=== PATIENT | female | born 1980 | race African-American/Black ===

== ENCOUNTER 2017-09-17 19:59 | Inpatient (IN) | payer MEDICAID ==
[~2017-09-17] VITALS: Ht 167.6 cm; Wt 65.3 kg
[2017-09-17] MEDS ORDERED: PHEN100C4 PO (20:10)
[2017-09-17] MEDS ORDERED: SODIUM CHLORIDE 0.9% 1,000 ML IV ONE (20:44)
[2017-09-17 21:38] LABS: BASOPHILS % 1.2 % (0.0-2.0); EOSINOPHILS % 1.9 % (0.0-5.0); HEMATOCRIT. 22.6 % (36.0-48.0); HEMOGLOBIN. 8.2 g/dL (12.0-16.0); LYMPHOCYTES % 28.6 % (20.0-50.0); MEAN CORPUSCULAR HEMOGLOBIN 41.6 pg (28.0-32.0); MEAN CORPUSCULAR VOLUME 114.4 fL (81.0-99.0); MEAN PLATELET VOLUME 7.9 fl (7.4-10.4); MONOCYTES % 13.1 % (2.0-8.0); NEUTROPHILS % 55.2 % (40.0-76.0); PLATELET 279 x1000/uL (130-400); RED BLOOD CELL COUNT 1.98 mill/uL (4.2-5.4); RED CELL DISTRIBUTION WIDTH 29.9 % (11.6-14.6)
[2017-09-17 21:45] LABS: INR 1.2; PARTIAL THROMBOPLASTIN TIME 27.8 sec (23.4-31.0); PROTHROMBIN TIME 12.9 sec (9.4-11.6)
[2017-09-17 21:48] LABS: CARBON DIOXIDE 24 mEq/L (21-32); CHLORIDE 105 mEq/L (98-107); ETHANOL BLOOD < 10 mg/dL; TOTAL IRON BINDING CAPACITY 217 ug/dL (250-450)
[2017-09-17 21:57] LABS: PLATELET ESTIMATE NORMAL
[2017-09-17 22:00] LABS: HCG SCREEN NEGATIVE
[2017-09-17] MEDS ORDERED: PHENYTOIN SODIUM 1,000 MG in SODIUM CHLORIDE 0.9% 100 ML IV ONE (22:00)
[2017-09-17] MEDS ORDERED: HYDROCODONE/ACETAMINOPHEN 5/325MG TABLET PO ONE (22:15)
[2017-09-17] MEDS ORDERED: ONDANSETRON 4MG ODT PO ONE (22:15)
[2017-09-17] MEDS ORDERED: MAGNESIUM/ALUMINUM HYDROXIDE/SIMETHICONE 30ML UDC PO PRN (22:30)
[2017-09-17] MEDS ORDERED: CLONIDINE 0.1MG TABLET PO PRN (22:30)
[2017-09-17] MEDS ORDERED: IPRATROPIUM/ALBUTEROL 0.5-3(2.5)MG/3ML NEB INH PRN (22:30)
[2017-09-17] MEDS ORDERED: ONDANSETRON HCL 4MG/2ML VIAL IV PRN (22:30)
[2017-09-17 22:31] LABS: CLARITY URINE CLEAR (CLEAR); COLOR URINE DARK YELLOW (YELLOW); GLUCOSE URINE NEGATIVE (NEGATIVE); KETONES URINE NEGATIVE (NEGATIVE); LEUKOCYTE ESTERASE URINE 2+ (NEGATIVE); NITRITE URINE NEGATIVE (NEGATIVE); OCCULT BLOOD URINE 1+ (NEGATIVE); PROTEIN URINE 1+ (NEGATIVE)
[2017-09-17 22:40] LABS: *AMPHETAMINES SCREEN URINE NEGATIVE (NEGATIVE); *BARBITURATES SCREEN URINE NEGATIVE (NEGATIVE); *BENZODIAZEPINES SCREEN URINE NEGATIVE (NEGATIVE); *COCAINE SCREEN URINE NEGATIVE (NEGATIVE); METHADONE URINE SCREEN NEGATIVE (NEGATIVE); OPIATES URINE SCREEN NEGATIVE (NEGATIVE); PHENCYCLIDINE URINE SCREEN NEGATIVE (NEGATIVE)
[2017-09-17 22:41] LABS: CANNABINOID URINE SCREEN PRESUMTIVE POSITIVE (NEGATIVE)
[2017-09-17] MEDS ORDERED: LEVOFLOXACIN 500MG PREMIX 100 ML IV ONE (22:45)
[2017-09-17] MEDS ORDERED: LEVOFLOXACIN 500MG TABLET PO ONE (23:00)
[2017-09-17 23:40] VITALS: BP 100/60
[2017-09-18] VITALS: BP 100/60
[2017-09-18 00:18] LABS: CHLORIDE 105 mEq/L (98-107)
[2017-09-18 00:24] LABS: CARBON DIOXIDE 25 mEq/L (21-32)
[2017-09-18] MEDS: HYDROCODONE/ACETAMINOPHEN 5/325MG TABLET PO PRN (01:53)
[2017-09-18 04:00] VITALS: BP 98/62
[2017-09-18] MEDS: PHENYTOIN SODIUM EXTENDED 100MG CAPSULE PO SCH ×3 (06:50→21:51)
[2017-09-18 07:47] LABS: BASOPHILS % 1.1 % (0.0-2.0); EOSINOPHILS % 1.3 % (0.0-5.0); HEMATOCRIT. 21.7 % (36.0-48.0); HEMOGLOBIN. 7.7 g/dL (12.0-16.0); LYMPHOCYTES % 36.6 % (20.0-50.0); MEAN CORPUSCULAR HEMOGLOBIN 40.9 pg (28.0-32.0); MEAN CORPUSCULAR VOLUME 115.4 fL (81.0-99.0); MEAN PLATELET VOLUME 8.3 fl (7.4-10.4); MONOCYTES % 12.8 % (2.0-8.0); NEUTROPHILS % 48.2 % (40.0-76.0); PLATELET 246 x1000/uL (130-400); RED BLOOD CELL COUNT 1.88 mill/uL (4.2-5.4); RED CELL DISTRIBUTION WIDTH 29.9 % (11.6-14.6)
[2017-09-18 08:00] VITALS: BP 91/54
[2017-09-18] MEDS: FOLIC ACID 1MG TABLET PO SCH (09:11)
[2017-09-18] MEDS: ENOXAPARIN 40MG/0.4ML SYR SUBCUT SCH (09:12)
[2017-09-18 10:56] LABS: CREATINE KINASE 27 IU/L (26-192); HDL CHOLESTEROL 16 mg/dL (40-59); LDL CHOLESTEROL 98 mg/dL (5-100); TROPONIN I < 0.02 ng/mL (0.00-0.04)
[2017-09-18 10:58] LABS: CREATINE KINASE MB FRACTION < 0.5 ng/mL (0.5-3.6)
[2017-09-18 12:00] VITALS: BP 98/63
[2017-09-18] MEDS: KETOROLAC 30MG/ML VIAL IV PRN (13:19)
[2017-09-18] MEDS: DIPHENHYDRAMINE 50MG/ML VIAL IV PRN ×2 (13:19→23:22)
[2017-09-18] MEDS: SODIUM CHLORIDE 0.9% 1,000 ML IV SCH (13:21)
[2017-09-18 14:59] LABS: CREATINE KINASE 37 IU/L (26-192); TROPONIN I < 0.02 ng/mL (0.00-0.04)
[2017-09-18 15:00] LABS: CREATINE KINASE MB FRACTION < 0.5 ng/mL (0.5-3.6)
[2017-09-18 15:58] VITALS: BP 118/78
[2017-09-18] MEDS ORDERED: HYDROMORPHONE HCL/PF 2MG/ML CPJ IV PRN (17:15)
[2017-09-18] MEDS: HYDROMORPHONE HCL/PF 2MG/ML CPJ IV PRN ×2 (18:03→21:58)
[2017-09-18 20:00] VITALS: BP 130/77
[2017-09-19] VITALS (7 sets, daily range): BP systolic 111–141; BP diastolic 70–83
[2017-09-19] MEDS: LEVOFLOXACIN 500MG PREMIX 100 ML IV SCH ×2 (00:46→22:14)
[2017-09-19] MEDS: HYDROMORPHONE HCL/PF 2MG/ML CPJ IV PRN ×2 (02:44→08:35)
[2017-09-19] MEDS: DIPHENHYDRAMINE 50MG/ML VIAL IV PRN ×2 (05:12→23:49)
[2017-09-19] MEDS: PHENYTOIN SODIUM EXTENDED 100MG CAPSULE PO SCH ×3 (05:19→22:14)
[2017-09-19] MEDS: SODIUM CHLORIDE 0.9% 1,000 ML IV SCH ×2 (05:19→11:53)
[2017-09-19] MEDS: CLOPIDOGREL 75MG TABLET PO SCH (08:33)
[2017-09-19] MEDS: FOLIC ACID 1MG TABLET PO SCH ×2 (08:33→16:48)
[2017-09-19] MEDS ORDERED: LIDOCAINE HCL 1% 20ML VIAL (Pyxis) INJ ONE (08:48)
[2017-09-19] MEDS: ENOXAPARIN 40MG/0.4ML SYR SUBCUT SCH (09:00)
[2017-09-19] MEDS ORDERED: IOHEXOL-350 100 ML BOTTLE ONE (10:45)
[2017-09-19] MEDS: KETOROLAC 30MG/ML VIAL IV PRN ×2 (11:53→20:35)
[2017-09-19 13:54] LABS: CARBON DIOXIDE 23 mEq/L (21-32); CHLORIDE 105 mEq/L (98-107); HDL CHOLESTEROL 17 mg/dL (40-59); LDL CHOLESTEROL 97 mg/dL (5-100); T4 FREE 1.36 ng/dL (0.76-1.46)
[2017-09-19 14:12] LABS: FOLIC ACID (FOLATE) SERUM 5.1 ng/mL (>5.38)
[2017-09-19 16:11] LABS: HEMOGLOBIN. 7.5 g/dL (12.0-16.0); MEAN CORPUSCULAR VOLUME 115.9 fL (81.0-99.0); MEAN PLATELET VOLUME 8.1 fl (7.4-10.4); PLATELET 191 x1000/uL (130-400); RED BLOOD CELL COUNT 1.78 mill/uL (4.2-5.4); RED CELL DISTRIBUTION WIDTH 27.2 % (11.6-14.6)
[2017-09-19 16:19] LABS: HEMATOCRIT. 20.6 % (36.0-48.0)
[2017-09-19] MEDS: HYDROCODONE/ACETAMINOPHEN 5/325MG TABLET PO PRN (16:49)
[2017-09-19 18:09] LABS: NUCLEATED RED BLOOD CELLS 14 /100 WBC; PLATELET ESTIMATE NORMAL
[2017-09-20] VITALS: BP 124/62
[2017-09-20] MEDS: HYDROMORPHONE HCL/PF 2MG/ML CPJ IV PRN ×3 (00:14→16:48)
[2017-09-20 04:00] VITALS: BP 118/67
[2017-09-20] MEDS: SODIUM CHLORIDE 0.9% 1,000 ML IV SCH ×2 (05:02→22:07)
[2017-09-20] MEDS: PHENYTOIN SODIUM EXTENDED 100MG CAPSULE PO SCH ×3 (05:02→22:06)
[2017-09-20 07:53] VITALS: BP 128/73
[2017-09-20] MEDS: FOLIC ACID 1MG TABLET PO SCH ×2 (08:00→16:47)
[2017-09-20] MEDS: CLOPIDOGREL 75MG TABLET PO SCH (08:00)
[2017-09-20] MEDS: ENOXAPARIN 40MG/0.4ML SYR SUBCUT SCH (08:01)
[2017-09-20 08:03] LABS: CARBON DIOXIDE 21 mEq/L (21-32); CHLORIDE 110 mEq/L (98-107)
[2017-09-20 08:18] LABS: HEMOGLOBIN. 7.4 g/dL (12.0-16.0); MEAN CORPUSCULAR HEMOGLOBIN 40.5 pg (28.0-32.0); MEAN CORPUSCULAR VOLUME 112.8 fL (81.0-99.0); MEAN PLATELET VOLUME 7.8 fl (7.4-10.4); PLATELET 253 x1000/uL (130-400); RED BLOOD CELL COUNT 1.84 mill/uL (4.2-5.4); RED CELL DISTRIBUTION WIDTH 26.6 % (11.6-14.6)
[2017-09-20 09:14] LABS: HEMATOCRIT. 20.7 % (36.0-48.0)
[2017-09-20] MEDS: KETOROLAC 30MG/ML VIAL IV PRN ×2 (11:23→20:06)
[2017-09-20 12:01] VITALS: BP 121/81
[2017-09-20 16:00] VITALS: BP 117/75
[2017-09-20 16:31] LABS: NUCLEATED RED BLOOD CELLS 18 /100 WBC; PLATELET ESTIMATE NORMAL
[2017-09-20 20:00] VITALS: BP 154/70
[2017-09-20] MEDS: ACETAMINOPHEN 325MG TABLET PO PRN (20:05)
[2017-09-20] MEDS: LEVOFLOXACIN 500MG PREMIX 100 ML IV SCH (22:07)
[2017-09-21 00:01] VITALS: BP 103/65
[2017-09-21] MEDS: HYDROMORPHONE HCL/PF 2MG/ML CPJ IV PRN ×4 (00:03→22:32)
[2017-09-21] MEDS: DIPHENHYDRAMINE 50MG/ML VIAL IV PRN ×4 (02:47→22:32)
[2017-09-21 04:20] VITALS: BP 109/54
[2017-09-21] MEDS: KETOROLAC 30MG/ML VIAL IV PRN ×2 (04:38→13:17)
[2017-09-21] MEDS: ACETAMINOPHEN 325MG TABLET PO PRN (04:38)
[2017-09-21] MEDS: PHENYTOIN SODIUM EXTENDED 100MG CAPSULE PO SCH ×3 (05:11→22:31)
[2017-09-21 08:00] VITALS: BP 102/56
[2017-09-21] MEDS: CLOPIDOGREL 75MG TABLET PO SCH (09:03)
[2017-09-21] MEDS: FOLIC ACID 1MG TABLET PO SCH ×2 (09:03→16:52)
[2017-09-21] MEDS: ENOXAPARIN 40MG/0.4ML SYR SUBCUT SCH (09:04)
[2017-09-21 11:55] VITALS: BP 110/46
[2017-09-21 13:11] LABS: DILUTE RUSSELL VIPER VENOM TME 33.4 sec (0.0-47.0)
[2017-09-21] MEDS: SODIUM CHLORIDE 0.9% 1,000 ML IV SCH (13:18)
[2017-09-21 16:00] VITALS: BP 100/60
[2017-09-21 20:30] VITALS: BP 103/53
[2017-09-21] MEDS: DOCUSATE SODIUM 100MG CAPSULE PO PRN (22:31)
[2017-09-21] MEDS: LEVOFLOXACIN 500MG PREMIX 100 ML IV SCH (22:32)
[2017-09-22 00:30] VITALS: BP 102/57
[2017-09-22] MEDS: ACETAMINOPHEN 325MG TABLET PO PRN (00:47)
[2017-09-22] MEDS: KETOROLAC 30MG/ML VIAL IV PRN ×3 (00:48→19:47)
[2017-09-22 04:30] VITALS: BP 102/55
[2017-09-22] MEDS: HYDROMORPHONE HCL/PF 2MG/ML CPJ IV PRN ×3 (04:51→16:51)
[2017-09-22] MEDS: DIPHENHYDRAMINE 50MG/ML VIAL IV PRN ×3 (05:16→22:16)
[2017-09-22] MEDS: PHENYTOIN SODIUM EXTENDED 100MG CAPSULE PO SCH ×3 (06:12→22:16)
[2017-09-22] MEDS: SODIUM CHLORIDE 0.9% 1,000 ML IV SCH ×2 (06:13→22:16)
[2017-09-22 08:00] VITALS: BP 102/61
[2017-09-22] MEDS: DOCUSATE SODIUM 100MG CAPSULE PO PRN (09:22)
[2017-09-22] MEDS: ENOXAPARIN 40MG/0.4ML SYR SUBCUT SCH (09:22)
[2017-09-22] MEDS: FOLIC ACID 1MG TABLET PO SCH ×2 (09:22→16:50)
[2017-09-22] MEDS: CLOPIDOGREL 75MG TABLET PO SCH (09:29)
[2017-09-22] MEDS ORDERED: SODIUM CHLORIDE 0.9% IV NR (09:30)
[2017-09-22] MEDS ORDERED: PHENYTOIN SODIUM IV NR (09:30)
[2017-09-22 12:00] VITALS: BP 100/51
[2017-09-22 13:12] LABS: ANTI-CARDIOLIPIN AB IGA < 9 APL U/mL (0-11); ANTI-CARDIOLIPIN AB IGG < 9 GPL U/mL (0-14); ANTI-CARDIOLIPIN AB IGM < 9 MPL U/mL (0-12)
[2017-09-22] MEDS ORDERED: HYDROCODONE/ACETAMINOPHEN 10/325MG TABLET PO PRN (13:45)
[2017-09-22 16:00] VITALS: BP 100/60
[2017-09-22 19:45] VITALS: BP 105/68
[2017-09-22] MEDS: LEVOFLOXACIN 500MG PREMIX 100 ML IV SCH (22:16)
[2017-09-23] MEDS ORDERED: HYDROXYUREA 500MG CAPSULE PO ONE (00:15)
[2017-09-23 00:18] VITALS: BP 101/52
[2017-09-23] MEDS: HYDROMORPHONE HCL/PF 2MG/ML CPJ IV PRN ×3 (00:20→13:55)
[2017-09-23 03:53] VITALS: BP 116/64
[2017-09-23] MEDS: DIPHENHYDRAMINE 50MG/ML VIAL IV PRN ×2 (04:16→11:11)
[2017-09-23] MEDS: KETOROLAC 30MG/ML VIAL IV PRN ×2 (04:16→11:11)
[2017-09-23] MEDS: PHENYTOIN SODIUM EXTENDED 100MG CAPSULE PO SCH ×2 (05:47→13:56)
[2017-09-23 08:00] VITALS: BP 100/60
[2017-09-23] MEDS: CLOPIDOGREL 75MG TABLET PO SCH (08:17)
[2017-09-23] MEDS: FOLIC ACID 1MG TABLET PO SCH (08:17)
[2017-09-23] MEDS: ENOXAPARIN 40MG/0.4ML SYR SUBCUT SCH (08:19)
[2017-09-23] MEDS ORDERED: HYDROXYUREA 500MG CAPSULE PO SCH (11:00)
[2017-09-23 12:00] VITALS: BP 104/65
[2017-09-23] MEDS ORDERED: PHEN100C4 PO (13:10)
[2017-09-23] MEDS ORDERED: HYDR500C PO (13:10)
[2017-09-23] MEDS ORDERED: FOLI-43 PO (13:10)
[2017-09-23] MEDS ORDERED: HYDR-523 PO (13:10)
[2017-09-23] MEDS ORDERED: CLOP75TA16 PO (14:04)
[2017-09-23 14:28] VITALS: BP 105/65
[2017-09-26 13:27] LABS: HGB A 7.3 % (94.0-98.0); HGB A2 3.6 % (0.7-3.1); HGB S 77.1 % (0.0); HGB SOLUBILITY Positive (Negative)
== END 2017-09-23 16:25 | disposition home or self-care (01) | DRG 53 ==
LOC: ER 20:13 → 8WST 22:15 → ENRESERV 22:34
PROVIDERS: ADMIT Internal Medicine; ATTEND Internal Medicine
PROC: 02HV33Z Insertion of Infusion Device into Superior Vena Cava, Percutaneous Approach (ICD-10-PCS; principal; 2017-09-19)
PROC: B5181ZA Fluoroscopy of Superior Vena Cava using Low Osmolar Contrast, Guidance (ICD-10-PCS; 2017-09-19)
PROC: B548ZZA Ultrasonography of Superior Vena Cava, Guidance (ICD-10-PCS; 2017-09-19)
DX: G40.909 Epilepsy, unspecified, not intractable, without status epilepticus (principal); I63.9 Cerebral infarction, unspecified; D57.00 Hb-SS disease with crisis, unspecified; D57.1 Sickle-cell disease without crisis; R65.10 Systemic inflammatory response syndrome (SIRS) of non-infectious origin without acute organ dysfunction; N39.0 Urinary tract infection, site not specified; D50.9 Iron deficiency anemia, unspecified; F17.200 Nicotine dependence, unspecified, uncomplicated; D53.9 Nutritional anemia, unspecified; F12.90 Cannabis use, unspecified, uncomplicated; Z91.19 Patient's noncompliance with other medical treatment and regimen; Z86.73 Personal history of transient ischemic attack (TIA), and cerebral infarction without residual deficits; Z91.14 Patient's other noncompliance with medication regimen; Z91.040 Latex allergy status; Z88.5 Allergy status to narcotic agent; Z88.0 Allergy status to penicillin; Z91.013 Allergy to seafood; Z68.23 Body mass index [BMI] 23.0-23.9, adult
CPT/HCPCS: 36415; 36569; 70496; 70498; 70551; 76937; 77001; 80048; 80061; 80185; 80305; 81001; 81400; 81403; 81407; 81479; 82270; 82550; 82553; 82607; 82746; 83021; 83036; 83540; 83550; 84439; 84443; 84481; 84484; 84703; 85025; 85044; 85300; 85303; 85306; 85610; 85613; 85660; 85730; 86147; 86850; 86870; 86900; 87040; 87086; 93306; 96365; 96375; 97116; 97162; 97166; 97530; 97535; 99291; C1725; C1893; G0482; J1165; J1170; J1200; J1650; J1885; J1956; J3490; J7030; J7050; Q0162; Q9967